=== PATIENT | female | born 1965 | race Hispanic/Latino ===

== ENCOUNTER 2017-06-08 07:19 | Day surgery (SDC) | payer BC ==
[2017-06-01 09:55] VITALS: BMI 30.5
[2017-06-08] MEDS ORDERED: Propofol 10 mg/ml Inj (20 ML) ONE ×2 (08:11→08:40)
[2017-06-08] MEDS ORDERED: Sodium Chloride 0.9% 1,000 ML IV SCH (08:45)
[2017-06-08 09:06] VITALS: TEMP 98
[2017-06-08 10:02] VITALS: BP 111/68; RESP 16
[2017-06-08 10:04] VITALS: PULSE 62; O2SAT 97
== END 2017-06-08 10:24 | disposition home or self-care (01) ==
LOC: ENDO 07:19
PROVIDERS: ATTEND Internal Medicine Gastroenterology
DX: Z12.11 Encounter for screening for malignant neoplasm of colon (principal); K64.1 Second degree hemorrhoids; Z80.52 Family history of malignant neoplasm of bladder
CPT/HCPCS: 45378; 84703; J2001; J2704; J7040 ×2